=== PATIENT | female | born 1965 | race Caucasian/White ===

== ENCOUNTER 2019-05-10 06:18 | Inpatient (IN) | payer OTHER, SELFPAY ==
[2019-05-04 08:47] VITALS: BMI 33.7
[2019-05-10] VITALS (15 sets, daily range): BP systolic 98–128; BP diastolic 51–87; PULSE 10–102; RESP 10–27; TEMP 36.1–36.8; O2SAT 90–98; BMI 33.3; BMI 34.0
--- NOTE | 2019-05-10 | DI.RAD.S_ITS ---
PROCEDURE: XR CERVICAL SPINE 2V OR 3V INDICATIONS: C 56/67 ARTIFICIAL DISC REPLACEMENT. TECHNIQUE: 2 view(s) of the cervical spine were acquired. [facility], [facility] CERVICAL SPINE WITHOUT CONTRAST, 03/16/2019, 7:21. FINDINGS: Limited intraoperative fluoroscopy images demonstrate prosthetic disc at C5-6 and C6-7. There is relatively good anatomic alignment. IMPRESSION: Prosthetic disc at C5-6 and C6-7 as above. Dictated by: Adri Donald M.D. on 05/10/2019 at 11:04 Approved by: Adri Donald M.D. on 05/10/2019 at 11:05
[2019-05-10] MEDS: LACTATED RINGERS 1,000 ML 42 ML IV ×2 (07:10→08:58)
--- NOTE | 2019-05-10 07:10 | PM.PREOP ---
Pre-operative Note Interval Note History & Physical reviewed/Exam performed by Physician: Yes Changes to H&P: No
[2019-05-10] MEDS: SCOPOLAMINE 1 PATCH TOP (07:12)
[2019-05-10] MEDS: ACETAMINOPHEN 325 MG TABLET 975 MG PO (07:12)
[2019-05-10] MEDS: CELECOXIB 200 MG CAPSULE 400 MG PO (07:12)
[2019-05-10] MEDS: GABAPENTIN 300 MG CAPSULE PO (07:12)
--- NOTE | 2019-05-10 07:25 | P.OP_ITS ---
Operative Date/Time/Diagnoses Date of procedure: 05/10/19 Time of procedure: 09:31 Pre-op diagnosis: Cervical disc herniation with myelopathy Post-op diagnosis: same Procedure & Clinicians Procedure: C5-6 and C6-7 anterior cervical diskectomy and artificial disc replacement Use of microscope Same procedure as scheduled: Yes Indications: [age] year old female with intractable pain from cervical disc herniation. They had failed conservative management and requested operative intervention. Risks and benefits of surgery were discussed and appropriate consents were obtained. Surgeon: Hamlet Navarro Director Ship: Araceli Friend Anesthesia Type: General Operative Notes Findings: None Closure Type: primary Specimen(s): none sent Prosthetic devices, grafts, tissues, transplants, or devices: Penelope Mobi-C Estimated Blood Loss (mL): 10 Procedure in detail: Patient was brought to the operating room and intubated on the table. A time-out was performed. Preoperative antibiotics were given. The neck was prepped and draped in the standard sterile fashion. Using a skin fold, we made a 3 cm oblique incision on the left side. We used Bovie to go through the platysma and then did a standard anterolateral blunt dissection down to the precervical fascia. Fascia was nicked and elevated up. A marker was placed and x-ray was taken for localization. We then subperiosteally elevated up the longus colli muscles. Self-retaining retractors were placed. Radcliff pins were placed under x-ray guidance to be parallel to the endplates. We then brought in the microscope. A scalpel used to perform an annulotomy. We then used a combination of pituitaries and curettes and Kerrison to perform a complete anterior diskectomy at C6-7. We took down the PLL and used Kerrison to remove any posterior disc material and osteophytes. At the end we could from the nerve hook cephalad caudally and out the foramen and everything was opened. We distracted open with the parallel senior software engineer analytics. We then used the horseshoes for sizing. We then used the trials. We then inserted a 15 x 17 x 5 mm size Mobi-C artificial disc replacement under fluoroscopic guidance for positioning. The traction was released and x-ray was checked again. The self-retaining retractors and Radcliff pins were transferred up to C5-6. Again we used the scalpel to perform an annulotomy and then a complete diskectomy with pituitaries, curettes, and Kerrisons at C5-6. We took down the PLL and used the Kerrison to remove posterior disc material. At the end we could sweep the nerve hook and everything was open. We distracted open with the parallel senior software engineer analytics. We checked for sizing and then used trials. We inserted a 15 x 15 x 5 mm size Mobi-C artificial disc replacement into C5-6. The traction was released and final x-rays taken. The wound was irrigated. There was no bleeding. The carotid was beating nicely. The platysma was closed. The superficial was closed. The skin was closed. A sterile dressing was placed. They were then extubated and brought to recovery room with no complications. Complications: none Post-operative Condition: stable Disposition: PACU Plan for aftercare: Overnight admission. Soft collar for comfort
[2019-05-10] MEDS: CLINDAMYCIN 900 MG/50 ML PIGGYBACK 50 MG IV ×2 (07:50→16:06)
--- NOTE | 2019-05-10 08:07 | SUR.OPER ---
Supine, head on gel donut. Arms padded with gel pads, tucked at sides, towel roll under shoulders. Safety belt at thigh. Legs uncrossed.
[2019-05-10] MEDS: SODIUM CHLORIDE 0.9% 1,000 ML, GENTAMICIN 80 MG IRR (08:11)
[2019-05-10] MEDS: THROMBIN (RECOMBINANT) 5,000 UNIT VIAL 5000 UNIT TOP (08:55)
[2019-05-10] MEDS: BUPIVACAINE 0.25% W/ EPI 30 ML VIAL INJ (09:26)
[2019-05-10] MEDS: fentaNYL 100 MCG/2 ML INJ IV ×2 (10:02→10:14)
[2019-05-10] MEDS: OXYCODONE IR 5 MG TABLET PO (10:29)
--- NOTE | 2019-05-10 10:45 | SUR.PHASEI ---
Awoke soon after arrival, oriented, pleasant. Has tolerated PO intake without nausea, sugar free pudding given. Skin warm and dry, resp unlabored throughout pacu stay. Report called to floor. Pt smiling, bright eyes, numbness resolved, pain improving. Dentures are in her mouth, clothing bag going to the room with the patient.
--- NOTE | 2019-05-10 11:07 | SUR.PHASEI ---
1055 to room 218, bed down and locked, call light within reach, SCD's on. A&O, talking, states that she is still hungry (after pudding). Parents to the room, joking with patient. clothing bag placed in the closet. VSS.
[2019-05-10] MEDS: LACTATED RINGERS 1,000 ML 125 ML IV (11:45)
--- NOTE | 2019-05-10 12:47 | PC.NURSE ---
Post-op: Arrived to room 218 at 1100. Wide awake and alert, oriented X3. Dressing to anterior neck dry/intact with small strip of sero-sang. drainage along R lateral portion. Soft collar in place. Patient denies difficulty swallowing or breathing, no s/sx noted by this manual writer. States pain is mostly in my back between my shoulder blades, rates 3/10 and understands she can request pain meds at any time. CMS++, reports paresthesias to BUE's and headaches present before surgery are no longer present. Ambulated to with this manual writer, voided without issue. Steady on feet without assistive device. Back in bed now, eating lunch without C/O nausea. VSS. Room air. Oriented to room and call light, able to make needs known. Light and belongings within reach, bed alarm active. SCD's to BLE's.
[2019-05-10] MEDS: HYDROCODONE/ACET 5/325 TABLET 1 TAB PO (14:11)
--- NOTE | 2019-05-10 15:25 | PT.IIE ---
Current Diagnoses Disease of spinal cord, unspecified (05/10/19) Other cervical disc displacement, unspecified cervical region (05/10/19) Surgery Performed Operation Date: 05/10/19 07:45 Actual Procedures p C56 & C67 anterior cervical discectomy & artificial disc replacement(Not Applicable) - Hamlet Navarro MD Surgical History (Last Updated 05/04/19 @ 09:00 by Vivian Durbin RN) History of section (Acute) History of colonoscopy (Acute) Hx of cholecystectomy (Acute) Hx of eye surgery (Acute) Hx of sinus surgery (Acute ~11/2010) Hx of tonsillectomy (Acute) Hx of tubal ligation (Acute) Medical History (Last Updated 05/04/19 @ 09:13 by Vivian Durbin RN) Anemia affecting (Acute ~1985) Arthritis (Acute) Asthma (Acute) Diabetes mellitus, type II (Acute) Environmental allergies (Acute) GERD (gastroesophageal reflux disease) (Acute) History of prolonged Q-T interval on ECG (Acute) HLD (hyperlipidemia) (Acute) Physical Therapy Inpatient Evaluation/Re-Eval M1 PT/OT-IP Prior Functional Status Start: 05/10/19 16:29 Freq: NEEDED Status: Active Protocol: Document 05/10/19 15:25 AB (Rec: 05/10/19 16:42 AB [id number]) Medical Review Prior Functional Status Medical History Reviewed Yes Communication able to make needs known Mobility and Gait stated that she is independent with all mobilities and ambulation without AD Social History Household Members none Living Arrangements Apartment/Condo Number of Floors (Floors) One Floor Number of Stairs To Enter/Railing? pt will stay at her parent's house which is a one level house with 1 step to enter Home Environment Standard Height Toilet,Walk in Shower,Built-In Shower Seat Home Equipment Hand Held Shower,Grab Bars In Shower Additional Social History Comment will use a recliner to sleep on for 1-2 days pt works in medical billing M2 PT-IP Current Condition Start: 05/10/19 16:29 Freq: NEEDED Status: Active Protocol: Document 05/10/19 15:25 AB (Rec: 05/10/19 16:42 AB [id number]) Physical Therapy Current Condition Current Condition Evaluation Date 05/10/19 Treatment Diagnosis s/p C5-6, C6-7 ACDF; difficulty in walking Onset Date 05/10/2019 Precautions Cervical Spine Precautions Soft Collar for Comfort,No Heavy Lifting,Log Roll M3 PT-IP Subjective Start: 05/10/19 16:29 Freq: NEEDED Status: Active Protocol: Document 05/10/19 15:25 AB (Rec: 05/10/19 16:42 AB [id number]) Subjective Physical Therapy Visit Type Type Initial Evaluation Visit Start Time 15:25 Visit Stop Time 15:49 Total Visit Minutes 24 Number of [employer] Visits 0 Physical Therapy Visit Comments Patient Comments pt agreeable to do PT Therapy Pain Assessment Pain When Pain Assessed At Rest Pain Present Pain Present Pain Reported Location neck Intensity 2 Scale Used Numeric (1 - 10) Pain Management Techniques Timing of Activity with Medications M4 PT-IP Mobility and Gait Start: 05/10/19 16:29 Freq: NEEDED Status: Active Protocol: Document 05/10/19 15:25 AB (Rec: 05/10/19 16:42 AB [id number]) PT-Bed Mobility Assessment Rolling Type of Rolling Log Rolling Level of Assist Standby Assistance Supine to Sit Supine to Sit Standby Assistance Sit to Supine Sit to Supine Standby Assistance PT-Transfer Assessment Sit to and From Stand Sit to and from Stand Standby Assistance Equipment Transfer Assistive Device Gait Belt Orthotic/Prosthetic Devices or Brace: No Comments Mobility Comments pt supine in bed and agreeable to do PT. reviewed precautions and log roll bed mobility. pt completed supine to sit SBA. pt completed sit to stand SBA and ambulated towards the sink. educated on cervical collar management and pt was able to evelyn/doff collar on. educated pt's mother on how to assist pt. pt ambulated in the hallway without AD SBA ~ 300 ft and completed up/down platform step without AD SBA. pt ambulated back to her room SBA without AD and wants to go back to bed. positioned pt in bed. call light and table placed within reach. Gait Assessment Gait Gait Assistance Required: Standby Assistance Distance (Feet) 300 Able to Maintain Weight Bearing Status Yes During Gait Assistive Devices Assistive Device Gait Belt Orthotic/Prosthetic Devices or Brace: Yes Factors Limiting Gait Function Factors Limiting Gait Function Limited Range of Motion,Pain Stair Climbing Assessment Evaluation Level of Assist On Stairs Standby Assistance Devices Stair Climbing Assistive Devices None Technique/Endurance Stair Climbing Direction Ascend and Descend Stair Climbing Technique Step to Step Number of Steps Climbed 1 Query Text: Stair Climbing Set # Repetitions (reps) 2 PT-Balance Assessment Sitting Balance and Reactions Static Sitting Balance Ability Normal Dynamic Sitting Balance Ability Normal Standing Balance and Reactions Static Standing Balance Ability Good Dynamic Standing Balance Ability Good Device Used without AD M5 PT-IP Objective Assessments Start: 05/10/19 16:29 Freq: NEEDED Status: Active Protocol: Document 05/10/19 15:25 AB (Rec: 05/10/19 16:42 AB [id number]) Orientation Orientation/Cognition Level of Alertness Alert Orientation Name,Age,Birthday,Month,Date, Year,Day of Week,Place, Situation Language Function Ability No Deficits Noted Safety Awareness Understands Safety Issues Memory Description No Deficits Noted Gross Range of Motion Lower Extremity ROM Assessment Within Functional Limits Strength Lower Extremity Strength Assessment Within Functional Limits Coordination Assessment Gross Coordination Gross Coordination WNL Sensation Assessment Sensation Gross Sensation WNL Muscle Tone Muscle Tone WNL Yes M6 PT-IP Treatment Start: 05/10/19 16:29 Freq: NEEDED Status: Active Protocol: Document 05/10/19 15:25 AB (Rec: 05/10/19 16:42 AB [id number]) Physical Therapy Treatment Education Education Provided Precautions,Weight Bearing Status,Post-Op Packet,Safety M7 PT-IP Assessment and Plan Start: 05/10/19 16:29 Freq: NEEDED Status: Active Protocol: Document 05/10/19 15:25 AB (Rec: 05/10/19 16:42 AB [id number]) PT Summary Assessment and Plan Potential Rehabilitation Potential Excellent Status of Condition at Evaluation Stable Summary Impairments Pain,ROM,Strength,Balance,Bed Mobility,Transfers,Gait, Activity Tolerance Assessment Summary pt requiring SBA with mobility without AD. pt plans to go home later today and may go home with assist when medically stable. Goals Bed Mobility Goal Independent Transfer Goal Independent Gait Goal Independent Gait Distance 350 Other Goals up/down 1 step without AD mod I Days to Meet Goals 3 Frequency of Treatment Frequency Of Treatment Twice a Day Treatment Plan Physical Therapy Treatment Plan Bed Mobility Training,Transfer Training,Gait Training, Therapeutic Exercise,Balance Retraining,Post Op Education, Discharge Planning,Hot or Cold Pack,Neuromuscular Re-ed, Coordination Retraining,Manual Therapy Recommendations To Nursing Amount of Assist Needed Standby Assistance Discharge Recommendations PT Discharge Recommendations Home with Assistance Transportation Needs at Discharge Private Vehicle
[2019-05-10] MEDS: NAPROXEN 250 MG TABLET 500 MG PO (16:06)
[2019-05-10] MEDS: HYDROCODONE/ACET 5/325 TABLET 2 TAB PO (16:15)
--- NOTE | 2019-05-10 16:56 | PM.PNPO.1 ---
Subjective Subjective Date Patient Seen: 05/10/19 Time Patient Seen: 16:56 Interval history: She is doing great. No more arm symptoms. Good pain control in the neck. Swallowing and eating well. She has been up and walking around and going to the bathroom without difficulty. Exam Vital Signs (past 8 hours): - 05/10/19 09:49 05/10/19 09:54 05/10/19 09:59 Temperature 97.0 F L Pulse Rate 102 H 10 L 98 H Respiratory Rate 20 27 H 16 Blood Pressure 105/65 99/60 105/69 Pulse Oximetry 90 L 92 95 05/10/19 10:04 05/10/19 10:14 05/10/19 10:24 Temperature Pulse Rate 95 H 91 H 99 H Respiratory Rate 15 10 L 12 Blood Pressure 108/67 111/78 99/64 Pulse Oximetry 97 96 97 05/10/19 10:34 05/10/19 10:47 05/10/19 10:52 Temperature 97.0 F L Pulse Rate 93 H 90 91 H Respiratory Rate 14 20 12 Blood Pressure 114/73 98/51 L 105/61 Pulse Oximetry 95 93 95 05/10/19 11:00 05/10/19 11:30 05/10/19 12:00 Temperature 98.2 F 98.2 F 98.2 F Pulse Rate 94 H 95 H 98 H Respiratory Rate 18 16 16 Blood Pressure 127/66 121/70 123/87 Pulse Oximetry 98 98 98 05/10/19 13:00 05/10/19 14:00 Temperature 98.0 F 98.0 F Pulse Rate 94 H 91 H Respiratory Rate 16 16 Blood Pressure 128/62 117/54 L Pulse Oximetry 97 96 Oxygen Delivery Method Room Air Oxygen Flow Rate 0 Const Orientation: alert and oriented x3 Back/Spine/Pelvis Other: CDI. No swelling. 5/5 motor both upper extremities Assessment & Plan Post-op Postoperative Procedures: Procedures Operation Date: 05/10/19 07:45 Actual Procedures Side Surgeon p C56 & C67 anterior cervical discectomy & artificial disc replacement Not Applicable Hamlet Navarro MD she is doing great. She would like to be discharged home today. Quality VTE Deep Vein Thrombosis/Pulmonary Embolism Present on Admission: No
[2019-05-10] MEDS: hydrOXYzine pamoate 25 MG CAPSULE PO (17:50)
--- NOTE | 2019-05-10 18:36 | PC.NURSE ---
Discharge Note Patient A&O, VSS, RA, no complaints of pain/discomfort. Discharge information reviewed with patient, no questions/concerns. Prescriptions given to patient. All belongings packed and given to patient. PIV discontinued, patient able to dress self with SBA. Patient taken down via wheelchair to personal vehicle.
== END 2019-05-10 18:05 | disposition home or self-care (01) | DRG 518 ==
PROVIDERS: Admitting Provider Orthopaedic Surgery; Referring Provider Orthopaedic Surgery; Visit Provider Orthopaedic Surgery
PROC: 0RR30JZ Replacement of Cervical Vertebral Disc with Synthetic Substitute, Open Approach (ICD-10-PCS; principal; 2019-05-10 07:45)
DX: M50.022 Cervical disc disorder at C5-C6 level with myelopathy (principal); M48.02 Spinal stenosis, cervical region; M47.22 Other spondylosis with radiculopathy, cervical region; E11.9 Type 2 diabetes mellitus without complications; Z79.4 Long term (current) use of insulin
CPT/HCPCS: 72040; 76000; 82962; 97161; C1776; J0330; J1885; J2250; J2405; J2704; J3010